=== PATIENT | female | born 1940 | race Caucasian/White ===

== ENCOUNTER 2017-10-05 16:10 | Outpatient (CLI) | payer MEDICARE | END 2017-10-05 16:11 | disposition home or self-care (01) | LOC: BICMAMMO 16:10 | PROVIDERS: ATTEND Internal Medicine | DX: Z12.31 Encounter for screening mammogram for malignant neoplasm of breast (principal) | CPT/HCPCS: 77063; 77067 ==

== ENCOUNTER 2018-02-21 19:13 | Emergency (ER) | payer MEDICARE, OTHER ==
[2018-02-21] MEDS ORDERED: Ibuprofen 200 MG TAB ONE (19:55)
--- NOTE | 2018-02-21 22:20 | RAD ---
CHEST TWO VIEW: History: Chest pain. Comparison: None. FINDINGS: Lungs are clear. Left apical opacified granuloma. No focal airspace consolidation, pneumothorax or ef fusion. Thoracic spine is without compression fracture. IMPRESSION: Mild chronic changes. No acute intrathoracic abnormality. POS: [facility]
== END 2018-02-21 21:30 | disposition home or self-care (01) ==
LOC: ERS 19:13
DX: S20.219A Contusion of unspecified front wall of thorax, initial encounter (principal); F32.9 Major depressive disorder, single episode, unspecified; F41.9 Anxiety disorder, unspecified; K21.9 Gastro-esophageal reflux disease without esophagitis; Z79.899 Other long term (current) drug therapy; V43.52XA Car driver injured in collision with other type car in traffic accident, initial encounter
CPT/HCPCS: 71046

== ENCOUNTER 2019-05-05 14:41 | Outpatient (CLI) | payer MEDICARE ==
--- NOTE | 2019-05-05 16:26 | MMO ---
Bilateral MAMMO Bilat Screen [facility]. CLINICAL HISTORY: Patient is 78 years old and is seen for screening. The patient has no family history of breast cancer. The patient has no personal history of cancer. The patient has a history of bilateral Cyst Aspiration - benign - multiple cyst drained in both breasts. VIEWS: The views performed were: bilateral craniocaudal with tomosynthesis and bilateral mediolateral oblique with tomosynthesis. FILMS COMPARED: The present examination has been compared to prior imaging studies performed at [facility] on 10/05/2017, and at [facility] on 11/07/2013 and 12/11/2015. MAMMOGRAM FINDINGS: The breasts are heterogeneously dense, which could obscure a lesion on mammography. Finding 1: There are stable benign appearing calcifications seen in both breasts. Finding 2: There are multiple stable nodules of varying size with obscured margins seen in both breasts. There are no suspicious masses, suspicious calcifications, or new areas of architectural distortion. IMPRESSION: THERE IS NO MAMMOGRAPHIC EVIDENCE OF MALIGNANCY. A ROUTINE FOLLOW-UP MAMMOGRAM IN 1 YEAR IS RECOMMENDED. THE RESULTS OF THIS EXAM WERE SENT TO THE PATIENT. ACR BI-RADS Category 2 - Benign finding MAMMOGRAPHY NOTE: 1. A negative mammogram report should not delay a biopsy if a dominant of clinically suspicious mass is present. 2. Approximately 10% to 15% of breast cancers are not detected by mammography. 3. Adenosis and dense breasts may obscure an underlying neoplasm. Reported by: MINGO CARRILLO MD Electonically Signed: [id number]
== END 2019-05-05 14:42 | disposition home or self-care (01) ==
LOC: BICMAMMO 14:41
PROVIDERS: ATTEND Internal Medicine Hematology & Oncology
DX: Z12.31 Encounter for screening mammogram for malignant neoplasm of breast (principal)
CPT/HCPCS: 77063; 77067